=== PATIENT | female | born 1945 | race African-American/Black ===

== ENCOUNTER → 2020-02-14 | Outpatient (CLI) | payer MEDICARE ==
[~2020-02-14] MED LIST: AMLO1TAB93 PO; ASPI325T70 PO; CARV25TA PO; HYDR15SO6 PO; IRON18TA PO; LACT1CAP8 PO; LEVO50TA5 PO; LISI1TAB20 PO; METF500T16 PO; OMEP20CA16 PO; PRAV40TA2 PO; ROPI0.25 PO; SIMV20TA PO; VIT1TABL62 PO; VIT1TABL65 PO; WARF1TAB2 PO
--- NOTE | 2020-02-14 08:52 | RAD ---
STUDY: US Abdomen Complete INDICATION: Abdominal pain. Weight loss. COMPARISON: None recently. TECHNIQUE: Real-time grayscale and color Doppler sonographic evaluation of the abdomen. Findings: Pancreas: No apparent mass, peripancreatic fluid or ductal dilatation. Liver: Increased hepatic echogenicity. Aorta/IVC/Main Portal Vein: Atheromatous luminal irregularity of the visualized aorta without aneurysmal dilatation. The main portal vein is patent with hepatopedal flow. Normal morphology of the IVC at the liver. Gall Bladder: Gallbladder wall thickness is normal. No stones or layering sludge. No sonographic Alonzo's sign. Common Bile Duct: Within the broad range of normal for patient age at around 8 mm. Right Kidney: Measures 9.8 cm in length. No complex cyst or mass. No hydronephrosis. Left Kidney: Measures 9.7 cm in length. Avascular, simple appearing cortical cyst measuring up to 3.2 cm in maximum dimension. No hydronephrosis. Spleen: Not able to be visualized. Miscellaneous: None. Impression: 1. Nonspecific increased hepatic echogenicity though often seen from fatty infiltration. 2. Unremarkable gallbladder. Within normal limits common bile duct diameter for patient age. 3. Left renal cyst measuring up to 3.2 cm. No complex features that would warrant dedicated follow-up. Electronically signed by: DEANNA JASMINE MD (02/14/2020 8:49 AM) [id number]
== END | disposition home or self-care (01) ==
LOC: US 07:41
PROVIDERS: ATTEND Internal Medicine Gastroenterology
DX: N28.1 Cyst of kidney, acquired (principal); R63.4 Abnormal weight loss
CPT/HCPCS: 76700

== ENCOUNTER → 2020-06-18 | Outpatient (CLI) | payer MEDICARE, MEDICAID ==
[2020-06-18 14:30] LABS: CALCIUM 8.6 mg/dL (8.5-10.1); CREATININE 1.1 mg/dL (0.6-1.0); GFR 58.6; POTASSIUM 4.1 mmol/L (3.5-5.1)
[2020-06-18 15:15] LABS: BASO % 1 % (0-3); EOS % 1 % (0-3); HEMOGLOBIN 11.3 g/dL (12.0-15.5); LYMPH # 1.3 x10^3/uL (1.0-4.8); LYMPH % 37 % (24-48); MEAN CORPUSCULAR HEMOGLOBIN 29 pg (25-35); MEAN CORPUSCULAR HGB CONC 32 g/dL (31-37); MEAN CORPUSCULAR VOLUME 91 fL (79-100); MONO # 0.3 x10^3/uL (0.0-1.1); MONO % 10 % (0-9); NEUT # 1.8 x10^3uL (1.8-7.7); NEUT % 51 % (31-73); PLATELET COUNT 251 x10^3/uL (140-400); RED BLOOD COUNT 3.85 x10^6/uL (3.50-5.40); RED CELL DISTRIBUTION WIDTH 14.4 % (11.5-14.5); WHITE BLOOD COUNT 3.5 x10^3/uL (4.0-11.0)
== END ==
LOC: LAB 13:35
PROVIDERS: ATTEND Internal Medicine Cardiovascular Disease
DX: I25.10 Atherosclerotic heart disease of native coronary artery without angina pectoris (principal)
CPT/HCPCS: 36415; 80048; 85025

== ENCOUNTER 2020-12-18 15:59 | Emergency (ER) | payer MEDICARE, MEDICAID ==
[~2020-12-18] VITALS: Ht 167.6 cm; Wt 84.0 kg
[2020-12-18] MEDS ORDERED: amLODIPine BESYLATE 5 MG TABLET PO ONE (16:30)
--- NOTE | 2020-12-18 16:34 | PHYS DOC ---
Past History Past Medical History: CAD, Diabetes, High Cholesterol, Hypertension, Hypothyroid Past Surgical History: Hysterectomy, Knee Replacement, Other Additional Past Surgical Histo: THYROID REMOVED, CATARACT, HEART STENT Alcohol Use: None General Adult EDM: Chief Complaint: HYPERTENSION HPI: HPI: 75-year-old female presents with hypertension. The patient had a home health visit today that is done once a year. When they came and checked on the patient , they found her blood pressure to be high. It was 200s over 100s. The patient tells me that she forgot to take her metoprolol and amlodipine first thing this morning. She took the metoprolol about noon, but this did not improve her blood pressure. The home health nurse was very concerned and advised that she immediately come to the emergency room. Patient has a mild global headache, but is feeling well otherwise. She denies chest pain or shortness of breath. Denies fever or chills. Review of Systems: Review of Systems: Constitutional: Denies fever or chills Eyes: Denies change in visual acuity HENT: Denies nasal congestion or sore throat Respiratory: Denies cough or shortness of breath Cardiovascular: Hypertension. Denies chest pain or edema GI: Denies abdominal pain, nausea, vomiting, bloody stools or diarrhea : Denies dysuria Musculoskeletal: Denies back pain or joint pain Integument: Denies rash Neurologic: Headache. Denies, focal weakness or sensory changes Endocrine: Denies polyuria or polydipsia Lymphatic: Denies swollen glands Psychiatric: Denies depression or anxiety Current Medications: Current Meds: Current Medications Medications (Trade) Dose Ordered Sig/[facility] Start Time Stop Time Status Last Admin Dose Admin Amlodipine Besylate (Norvasc) 5 mg 1X ONCE 12/18/20 16:30 12/18/20 16:31 UNV Allergies: Allergies: Allergies Coded Allergies Type Severity Reaction Last Updated Verified oxycodone Allergy Unknown nightmares 06/25/13 Yes rosuvastatin calcium Allergy Unknown 06/25/13 Yes simvastatin Allergy Unknown 06/25/13 Yes Physical Exam: PE: Constitutional: Well developed, well nourished, no acute distress, non-toxic appearance. [] HENT: Normocephalic, atraumatic, bilateral external ears normal, oropharynx moist, no oral exudates, nose normal. [] Eyes: PERRLA, EOMI, conjunctiva normal, no discharge. [] Neck: Normal range of motion, no tenderness, supple, no stridor. [] Cardiovascular: Heart rate 74, regular rhythm, no murmur [] Lungs & Thorax: Bilateral breath sounds clear to auscultation [] Abdomen: Bowel sounds normal, soft, no tenderness, no masses, no pulsatile masses. [] Skin: Warm, dry, no erythema, no rash. [] Back: No tenderness, no CVA tenderness. [] Extremities: No tenderness, no cyanosis, no clubbing, ROM intact, no edema. [] Neurologic: Alert and oriented X 3, normal motor function, normal sensory function, no focal deficits noted. [] Psychologic: Affect normal, judgement normal, mood normal. [] Current Patient Data: Vital Signs: Vital Signs Date Time Temp Pulse Resp B/P (MAP) Pulse Ox O2 Delivery O2 Flow Rate FiO2 12/18/20 16:12 98.2 82 18 220/90 (133) 96 Room Air EKG: EKG: Sinus rhythm, rate 74, normal axis, no ST elevation or depression. [] Radiology/Procedures: Radiology/Procedures: [] Impressions: EXAM: AP View of the chest DATE: 12/18/2020 4:36 PM INDICATION: Reason: hypertension / Spl. Instructions: / History: COMPARISON: No Prior FINDINGS: The heart is not enlarged. Aorta is tortuous with atherosclerotic calcifications. No focal parenchymal airspace opacity. No pleural effusion or pneumothorax. IMPRESSION: 1. No radiographic evidence for acute cardiopulmonary process. Electronically signed by: Lopez Horne MD (12/18/2020 4:43 PM) [facility] DICTATED AND SIGNED BY: LOPEZ HORNE MD DATE: 12/18/20 1642 CC: ARI DE LEON DO; ARMIDA JAY MD ~MTH0 0 Heart Score: C/O Chest Pain: No Risk Factors: Risk Factors: DM, Current or recent (<one month) smoker, HTN, HLP, family hist ory of CAD, obesity. Risk Scores: Score 0 - 3: 2.5% MACE over next 6 weeks - Discharge Home Score 4 - 6: 20.3% MACE over next 6 weeks - Admit for Clinical Observation Score 7 - 10: 72.7% MACE over next 6 weeks - Early Invasive Strategies Course & Med Decision Making: Course & Med Decision Making Pertinent Labs and Imaging studies reviewed. (See chart for details) The patient's labs are unremarkable. Her EKG is unremarkable. Her troponin is negative. Her chest x-ray is negative for acute findings. For her hypertension, I have given her 5 mg of amlodipine. Her blood pressure has improved significantly. She is feeling better. I spoke with her about all of her results and her medications. It is most likely that she had elevated blood pressure above normal because of her missing her dose. She is greatly reassured by this. She will work hard to take her medications on time and every day. She is stable for discharge at this time. [] Dragon Disclaimer: Dragon Disclaimer: This electronic medical record was generated, in whole or in part, using a voice recognition dictation system. Departure Departure: Impression: Primary Impression: Hypertension Qualified Codes: I10 - Essential (primary) hypertension Disposition: HOME / SELF CARE / HOMELESS Condition: IMPROVED Referrals: ARMIDA JAY MD (PCP) Patient Instructions: Hypertension, [id number] ARI DE LEON DO Dec 18, 2020 16:34
--- NOTE | 2020-12-18 16:37 | EKG ---
[address] [address] Test Date: 2020-12-18 Test Time: 16:10:14 Pat Name: CAT BURTON Department: Room: Gender: F Chemical Applicator: MAYRA : 1945 Requested By: ARI DE LEON Order Number: [id number] Reading MD: Measurements Intervals [place] Rate: 74 P: 32 ND: 184 QRS: -10 QRSD: 84 T: 17 QT: 394 QTc: 438 Interpretive Statements SINUS RHYTHM LEFTWARD AXIS OTHERWISE NORMAL ECG RI6.02 No previous ECG available for comparison
--- NOTE | 2020-12-18 16:46 | RAD ---
EXAM: AP View of the chest DATE: 12/18/2020 4:36 PM INDICATION: Reason: hypertension / Spl. Instructions: / History: COMPARISON: No Prior FINDINGS: The heart is not enlarged. Aorta is tortuous with atherosclerotic calcifications. No focal parenchymal airspace opacity. No pleural effusion or pneumothorax. IMPRESSION: 1. No radiographic evidence for acute cardiopulmonary process. Electronically signed by: Lopez Horne MD (12/18/2020 4:43 PM) [place]
[2020-12-18 17:04] LABS: CALCIUM 8.9 mg/dL (8.5-10.1); CREATININE 0.9 mg/dL (0.6-1.0); GFR 73.9; POTASSIUM 4.5 mmol/L (3.5-5.1)
[2020-12-18 17:09] LABS: ALBUMIN 3.6 g/dL (3.4-5.0); ALBUMIN/GLOBULIN RATIO 1.1 (1.0-1.7); TOTAL BILIRUBIN 0.6 mg/dL (0.2-1.0); TOTAL PROTEIN 6.8 g/dL (6.4-8.2)
[2020-12-18 17:13] LABS: BASO % 1 % (0-3); EOS # 0.1 x10^3/uL (0.0-0.7); EOS % 2 % (0-3); HEMATOCRIT 36.5 % (36.0-47.0); LYMPH # 1.2 x10^3/uL (1.0-4.8); LYMPH % 39 % (24-48); MEAN CORPUSCULAR HEMOGLOBIN 31 pg (25-35); MEAN CORPUSCULAR HGB CONC 33 g/dL (31-37); MEAN CORPUSCULAR VOLUME 94 fL (79-100); MONO # 0.4 x10^3/uL (0.0-1.1); MONO % 12 % (0-9); NEUT # 1.5 x10^3uL (1.8-7.7); NEUT % 47 % (31-73); PLATELET COUNT 251 x10^3/uL (140-400); WHITE BLOOD COUNT 3.1 x10^3/uL (4.0-11.0)
[2020-12-18 17:29] VITALS: BP 148/75
[2020-12-18] MEDS ORDERED: cloNIDine HCL 0.1 MG TABLET PO ONE (18:00)
== END 2020-12-18 17:47 | disposition home or self-care (01) ==
LOC: ER 15:59
DX: I10 Essential (primary) hypertension (principal); E11.9 Type 2 diabetes mellitus without complications; E78.5 Hyperlipidemia, unspecified; Z88.6 Allergy status to analgesic agent; Z88.5 Allergy status to narcotic agent; Z90.710 Acquired absence of both cervix and uterus
CPT/HCPCS: 36415; 71045; 80053; 84484; 85025; 93005; 99285-25